=== PATIENT | male | born 1975 | race Caucasian/White ===

== ENCOUNTER 2020-08-30 11:30 | Outpatient (REF) | payer MEDICAID, SELFPAY | END 2020-08-30 11:31 | disposition home or self-care (01) | LOC: HO.LAB 11:30 | PROVIDERS: PCP Internal Medicine; Visit Provider Internal Medicine | DX: Z20.822 Contact with and (suspected) exposure to COVID-19 (principal) | CPT/HCPCS: 36415; C9803; U0003; U0005 ==

== ENCOUNTER 2020-10-12 14:10 | Outpatient (REF) | payer MEDICAID, SELFPAY ==
[2020-10-12 18:24] LABS: Estimated Average Glucose 160 mg/dL; Hemoglobin A1c % 7.2 %
== END 2020-10-12 14:11 | disposition home or self-care (01) ==
LOC: HO.MANLDS 14:10
PROVIDERS: PCP Internal Medicine; Visit Provider Internal Medicine
DX: E10.3219 Type 1 diabetes mellitus with mild nonproliferative diabetic retinopathy with macular edema, unspecified eye (principal); I10 Essential (primary) hypertension
CPT/HCPCS: 36415; 83036

== ENCOUNTER 2021-01-19 15:32 | Outpatient (REF) | payer MEDICAID, SELFPAY ==
[2021-01-19 17:00] LABS: Estimated Average Glucose 163 mg/dL; Hemoglobin A1c % 7.3 %
== END 2021-01-19 15:33 | disposition home or self-care (01) ==
LOC: HO.MANLDS 15:32
PROVIDERS: PCP Internal Medicine; Visit Provider Internal Medicine
DX: E10.3219 Type 1 diabetes mellitus with mild nonproliferative diabetic retinopathy with macular edema, unspecified eye (principal)
CPT/HCPCS: 36415; 83036

== ENCOUNTER 2021-06-07 10:09 | Outpatient (REF) | payer MEDICAID, SELFPAY ==
[2021-06-07 14:07] LABS: Estimated Average Glucose 166 mg/dL; Hemoglobin A1c % 7.4 %
== END 2021-06-07 10:10 | disposition home or self-care (01) ==
LOC: HO.MANLDS 10:09
PROVIDERS: PCP Internal Medicine; Visit Provider Internal Medicine
DX: E10.3219 Type 1 diabetes mellitus with mild nonproliferative diabetic retinopathy with macular edema, unspecified eye (principal); I10 Essential (primary) hypertension
CPT/HCPCS: 36415; 83036

== ENCOUNTER 2021-10-25 09:15 | Outpatient (REF) | payer MEDICAID, SELFPAY ==
[2021-10-25 11:25] LABS: Alanine Aminotransferase 13 U/L (0-40); Alkaline Phosphatase 67 U/L (39-117); Anion Gap 12 (12-20); Aspartate Amino Transferase 28 U/L (5-37); Bilirubin Total 1.1 mg/dL (0.0-1.0); Blood Urea Nitrogen 30 mg/dL (9-16); Calcium 8.5 mg/dL (8.4-10.2); Carbon Dioxide 26 mmol/L (22-29); Chloride 104 mmol/L (96-108); Estimated Glomerular Filt Rate 16; Glucose Random 383 mg/dL (60-115); Potassium 4.6 mmol/L (3.3-5.1); Sodium 137 mmol/L (135-145)
== END 2021-10-25 09:16 | disposition home or self-care (01) ==
LOC: HO.MANLDS 09:15
PROVIDERS: PCP Physician Assistant; Visit Provider Physician Assistant
DX: N17.8 Other acute kidney failure (principal)
CPT/HCPCS: 36415; 80053

== ENCOUNTER 2022-02-17 07:44 | Outpatient (REF) | payer MEDICAID, SELFPAY ==
[2022-02-17 11:38] LABS: Estimated Average Glucose 212 mg/dL
[2022-02-17 11:40] LABS: Alanine Aminotransferase 7 U/L (0-40); Albumin Level 3.4 g/dL (3.5-5.0); Alkaline Phosphatase 79 U/L (39-117); Anion Gap 13 (12-20); Aspartate Amino Transferase 14 U/L (5-37); Bilirubin Total 0.7 mg/dL (0.0-1.0); Blood Urea Nitrogen 40 mg/dL (9-16); Calcium 8.6 mg/dL (8.4-10.2); Carbon Dioxide 31 mmol/L (22-29); Chloride 102 mmol/L (96-108); Cholesterol 117 mg/dL; Estimated Glomerular Filt Rate 14; Glucose Random 141 mg/dL (60-115); HDL Cholesterol 49 mg/dL; LDL Cholesterol Calculated 64 mg/dl; Potassium 4.1 mmol/L (3.3-5.1); Sodium 142 mmol/L (135-145); Total Protein 6.3 g/dL (6.5-8.0); Triglycerides 24 mg/dL
[2022-02-17 11:53] LABS: Creatinine Urine 63.44 mg/dL
[2022-02-17 11:57] LABS: Thyroid Stimulating Hormone 3.47 uIU/mL (0.32-4.0)
[2022-02-17 12:05] LABS: Vitamin B12 283 pg/mL (200-900)
== END 2022-02-17 07:45 | disposition home or self-care (01) ==
LOC: HO.MANLDS 07:44
PROVIDERS: Visit Provider Internal Medicine
DX: E10.3219 Type 1 diabetes mellitus with mild nonproliferative diabetic retinopathy with macular edema, unspecified eye (principal)
CPT/HCPCS: 36415; 80053; 80061; 82043; 82306; 82607; 83036; 84443

== ENCOUNTER 2022-06-22 10:16 | Emergency (ER) | payer MEDICAID, SELFPAY ==
[2022-06-22 10:30] VITALS: BP 147/67; BP 192/81; PULSE 64; PULSE 67; RESP 18; TEMP 36.7; O2SAT 100; O2SAT 98; BMI 28.0
[2022-06-22 10:45] LABS: Glucose, Whole Blood > 600 mg/dL (60-115)
[2022-06-22 10:45] LABS: Glucose, Whole Blood 148 mg/dL (60-115)
--- NOTE | 2022-06-22 10:55 | PC.NURSE ---
patient a/ox4 .patient responsive slow . nargis . heart rate regular at 67 beats per minute . breathing even and unlabored . lungs clear throughout . skin cool and clammy . POC 148 . IV placed in left A.C . abdomen soft . positive bowel sounds in all four quadrants . patient on monitoring analyst . As assement continues patients alertness improves . patient contributes life stressors as contributing to uncontrolled type [address] Judah Giordano at bedside . patient aware of plan of care .
--- NOTE | 2022-06-22 11:02 | ECG_ITS ---
Test Reason : hypoglycemia Blood Pressure : / mmHG Vent. Rate : 064 BPM Atrial Rate : 064 BPM P-R Int : 142 ms QRS Dur : 098 ms QT Int : 460 ms P-R-T Axes : 069 012 044 degrees QTc Int : 474 ms Normal sinus rhythm Possible Left atrial enlargement Borderline ECG No previous ECGs available Referred By: Yanni Giordano Electronically Signed By:JAKE MCKEON
--- NOTE | 2022-06-22 11:03 | ED_ITS ---
HPI - General Adult General Chief complaint: General Medical Stated complaint: LOW BS OF 46, MID60'S AFTER ORAL GLUC Time Seen by Provider: 06/22/22 10:21 Source: patient Mode of arrival: EMS History of Present Illness HPI narrative: 46-year-old male who is a known diabetic is brought in by EMS after he states he is undergoing additional stress in his life and states that he was in the parking lot and is part car and found by a bystander to be diaphoretic and confused and noted be hypoglycemic to 40. Patient states that he took his i nsulin and had eaten his hash brown but had not touched his coffee or donut. Patient is currently managed by his primary care provider and is a type 1 diabetic and cannot recall the last time his blood sugar was this slow but states that frequently occurs when he is under a lot of stress. Patient also endorses that if you see that my renal function has worsened my primary care provider is aware of this and I am undergoing a referral to Nephrology for possible initiation of dialysis . EMS stated that they gave oral glucose and blood sugar improved. Related Data Allergies Allergy/AdvReac Type Severity Reaction Status Date / Time Sulfa (Sulfonamide Allergy Hives Verified 06/22/22 10:52 Antibiotics) Review of Systems Review of Systems: Pertinent positives and negatives as stated in HPI 10 point review of systems is otherwise negative. PMFSH Past Medical History Source: nursing notes reviewed Social History Social History Alcohol intake: former Smoked in Last 30 Days: No Advance Directives: No Advance Directives Information Provided: Yes Physical Exam ED Vital Signs: Vital Signs - 24 hr 06/22/22 10:30 06/22/22 16:08 Temperature 98.0 F Pulse Rate 64 78 Respiratory Rate 18 18 Blood Pressure 147/67 H 147/73 H Pulse Oximetry 100 99 Oxygen Delivery Method Room Air Room Air BMI result Body Mass Index 28.0 VITAL SIGNS: Reviewed. GENERAL: Well developed, well nourished, in no acute distress. HEAD: Normocephalic/atraumatic EYES: PERRLA, EOMI EARS: Ext canals without abnormality OROPHARYNX: no oral lesions noted, posterior pharynx clear LUNGS: Normal breath sounds. No adventitious sounds or accessory muscle use. SpO2<100> CARDIOVASCULAR: Regular rate and rhythm without noted murmurs, no JVD or lower extremity edema. ABDOMEN: Soft, non-tender, non-distended with bowel sounds. MUSCULOSKELETAL: No tenderness, deformities, or effusions noted on gross inspection. EXTREMITIES: No cyanosis, clubbing or edema. SKIN: Inspection of the skin reveals no rashes NEUROLOGIC: Alert and oriented x 4. Strength and sensation to light touch were grossly intact x 4. Course Course Course Narrative: 46-year-old male with history and clinical presentation of transient hypoglycemia secondary to inadequate oral intake after administration of insulin. Patient is responded well to oral glucose and will continue to monitor to ensure that his glucose states within normal range. Basic labs to include EKG will be obtained. On review of lab work he is noted to have significantly worsening creatinine function, but patient does state that this is already known to his primary care provider and is not associated with an elevated potassium or other electrolyte abnormalities. Patient does appear to be a reliable and responsible historian. However, will provide patient with 2 L of IV fluids an attempt to communicate with patient's primary care provider before final discharge disposition. 1639: Patient re-evaluated and he is feeling better, repeat BMP demonstrates that although he still has a CKD it appears to be consistent with prior and consistent with patient's report that it has worsened. He is otherwise hemodynamically stable with stable glucose and can be discharged home in stable condition. I did make an attempt to reach out to his primary care provider Dr. Pruitt who never returned my call. Medications Administered Discontinued Medications Generic Name Dose Route Start Last Admin Trade Name Freq PRN Reason Stop Dose Admin Sodium Chloride 2,000 mls @ 999 mls/hr 06/22/22 13:15 06/22/22 15:39 Ns IV 06/22/22 15:15 Infused .Q2H1M ALIRIO Infusion Medical Decision Making Lab Data Result Diagrams: 06/22/22 11:27 06/22/22 15:44 Labs: Lab Results 06/22/22 06/22/22 06/22/22 Range/Units 10:33 10:36 11:27 WBC 5.4 (4.8-10.8) X10*3/uL RBC 3.72 L (4.60-5.80) X10*6/uL Hgb 11.4 L (14.0-18.0) g/dl Hct 33.4 L (42.0-52.0) % MCV 89.8 (80.0-98.0) fL MCH 30.6 (27.0-33.0) pg MCHC 34.1 (31.0-36.0) g/dl RDW 11.8 (11.0-16.0) % Plt Count 179 (160-400) X10*3/uL MPV 10.0 (9.4-12.4) fL Immature Gran % (Auto) 0.4 (0.0-0.4) % Neut % (Auto) 66.1 (45-73) % Lymph % (Auto) 17.9 L (20-40) % Frontier % (Auto) 10.5 (2-11) % Eos % (Auto) 4.2 H (0-4) % Baso % (Auto) 0.9 (0-2) % Lymph # (Auto) 1.0 L (1.2-4.9) X10*3/uL Frontier # (Auto) 0.6 (0.1-1.2) X10*3/uL Eos # (Auto) 0.2 (0.0-0.4) X10*3/uL Baso # (Auto) 0.1 (0.0-0.2) X10*3/uL Abs Immat Gran (auto) 0.02 (0.00-0.03) X10*3/uL Absolute Neuts (auto) 3.6 (2.0-8.3) x10*3/uL Absolute Nucleated RBC 0.000 (0.0-0.012) X10*3/uL Nucleated RBC % (auto) 0.0 (0.0-0.2) /100WBC Sodium (135-145) mmol/L Potassium (3.3-5.1) mmol/L Chloride (96-108) mmol/L Carbon Dioxide (22-29) mmol/L Anion Gap (12-20) BUN (9-16) mg/dL Creatinine (0.5-1.4) mg/dL Estim Creat Clear Calc Estimated GFR POC Glucose > 600 H* 148 H (60-115) mg/dL Random Glucose (60-115) mg/dL Calcium (8.4-10.2) mg/dL Total Bilirubin (0.0-1.0) mg/dL AST (5-37) U/L ALT (0-40) U/L Alkaline Phosphatase (39-117) U/L Total Protein (6.5-8.0) g/dL Albumin (3.5-5.0) g/dL Influenza Type A (PCR) (Negative) Influenza Type B (PCR) (Negative) RSV RNA Qual (PCR) (Negative) SARS-CoV-2 RNA (RT-PCR) (Negative) 06/22/22 06/22/22 06/22/22 Range/Units 11:27 11:27 15:44 WBC (4.8-10.8) X10*3/uL RBC (4.60-5.80) X10*6/uL Hgb (14.0-18.0) g/dl Hct (42.0-52.0) % MCV (80.0-98.0) fL MCH (27.0-33.0) pg MCHC (31.0-36.0) g/dl RDW (11.0-16.0) % Plt Count (160-400) X10*3/uL MPV (9.4-12.4) fL Immature Gran % (Auto) (0.0-0.4) % Neut % (Auto) (45-73) % Lymph % (Auto) (20-40) % Frontier % (Auto) (2-11) % Eos % (Auto) (0-4) % Baso % (Auto) (0-2) % Lymph # (Auto) (1.2-4.9) X10*3/uL Frontier # (Auto) (0.1-1.2) X10*3/uL Eos # (Auto) (0.0-0.4) X10*3/uL Baso # (Auto) (0.0-0.2) X10*3/uL Abs Immat Gran (auto) (0.00-0.03) X10*3/uL Absolute Neuts (auto) (2.0-8.3) x10*3/uL Absolute Nucleated RBC (0.0-0.012) X10*3/uL Nucleated RBC % (auto) (0.0-0.2) /100WBC Sodium 140 141 (135-145) mmol/L Potassium 4.0 3.9 (3.3-5.1) mmol/L Chloride 102 108 (96-108) mmol/L Carbon Dioxide 29 25 (22-29) mmol/L Anion Gap 13 12 (12-20) BUN 46 H 42 H (9-16) mg/dL Creatinine 7.33 H* 6.88 H* (0.5-1.4) mg/dL Estim Creat Clear Calc 14.2 15.1 Estimated GFR 8 9 POC Glucose (60-115) mg/dL Random Glucose 66 D 102 D (60-115) mg/dL Calcium 8.5 7.8 L D (8.4-10.2) mg/dL Total Bilirubin 0.9 (0.0-1.0) mg/dL AST 17 (5-37) U/L ALT 11 (0-40) U/L Alkaline Phosphatase 90 (39-117) U/L Total Protein 6.0 L (6.5-8.0) g/dL Albumin 3.4 L (3.5-5.0) g/dL Influenza Type A (PCR) NEGATIVE (Negative) Influenza Type B (PCR) NEGATIVE (Negative) RSV RNA Qual (PCR) NEGATIVE (Negative) SARS-CoV-2 RNA (RT-PCR) NEGATIVE (Negative) 06/22/22 Range/Units 16:20 WBC (4.8-10.8) X10*3/uL RBC (4.60-5.80) X10*6/uL Hgb (14.0-18.0) g/dl Hct (42.0-52.0) % MCV (80.0-98.0) fL MCH (27.0-33.0) pg MCHC (31.0-36.0) g/dl RDW (11.0-16.0) % Plt Count (160-400) X10*3/uL MPV (9.4-12.4) fL Immature Gran % (Auto) (0.0-0.4) % Neut % (Auto) (45-73) % Lymph % (Auto) (20-40) % Frontier % (Auto) (2-11) % Eos % (Auto) (0-4) % Baso % (Auto) (0-2) % Lymph # (Auto) (1.2-4.9) X10*3/uL Frontier # (Auto) (0.1-1.2) X10*3/uL Eos # (Auto) (0.0-0.4) X10*3/uL Baso # (Auto) (0.0-0.2) X10*3/uL Abs Immat Gran (auto) (0.00-0.03) X10*3/uL Absolute Neuts (auto) (2.0-8.3) x10*3/uL Absolute Nucleated RBC (0.0-0.012) X10*3/uL Nucleated RBC % (auto) (0.0-0.2) /100WBC Sodium (135-145) mmol/L Potassium (3.3-5.1) mmol/L Chloride (96-108) mmol/L Carbon Dioxide (22-29) mmol/L Anion Gap (12-20) BUN (9-16) mg/dL Creatinine (0.5-1.4) mg/dL Estim Creat Clear Calc Estimated GFR POC Glucose 83 (60-115) mg/dL Random Glucose (60-115) mg/dL Calcium (8.4-10.2) mg/dL Total Bilirubin (0.0-1.0) mg/dL AST (5-37) U/L ALT (0-40) U/L Alkaline Phosphatase (39-117) U/L Total Protein (6.5-8.0) g/dL Albumin (3.5-5.0) g/dL Influenza Type A (PCR) (Negative) Influenza Type B (PCR) (Negative) RSV RNA Qual (PCR) (Negative) SARS-CoV-2 RNA (RT-PCR) (Negative) Independent Interpretation I performed an independent interpretation of an: EKG Interpretation: Normal sinus rhythm, HR-64, no STEMI, AL/QRS/QTC are within normal limits. There is no EKG for comparison. Critical Care Time Critical Care Time Critical Care Time: Yes Total Critical Care Time: 45 Attestation: I personally attest to this time spent taking care of the patient. Discharge Plan Discharge Clinical Impression: Hypoglycemia, CKD (chronic kidney disease) Patient Disposition: Home, Self-Care Instructions: Chronic Kidney Disease (ED), Hypoglycemia in a Person with Diabetes (ED) Additional Instructions: 1. Resume all home medications as prescribed. 2. Continue stay well hydrated with water. 3. Please follow-up with your primary care provider by calling the office in the morning and setting up an and evaluation for further outpatient management. Return to the ER for worsening symptoms. Referrals: Aidan Pruitt MD [Primary Care Provider] -
[2022-06-22 11:34] LABS: MANUAL DIFF FLAG NO
[2022-06-22 11:44] LABS: Basophils Absolute Auto 0.1 X10*3/uL (0.0-0.2); Basophils Percent Auto 0.9 % (0-2); Eosinophils Absolute Auto 0.2 X10*3/uL (0.0-0.4); Eosinophils Percent Auto 4.2 % (0-4); Hematocrit 33.4 % (42.0-52.0); Hemoglobin 11.4 g/dl (14.0-18.0); Imm Gran Abs Auto 0.02 X10*3/uL (0.00-0.03); Imm Gran Pct Auto 0.4 % (0.0-0.4); Lymphocytes Percent Auto 17.9 % (20-40); Mean Corpuscular HGB Conc 34.1 g/dl (31.0-36.0); Mean Corpuscular Hemoglobin 30.6 pg (27.0-33.0); Mean Corpuscular Volume 89.8 fL (80.0-98.0); Monocytes Absolute Auto 0.6 X10*3/uL (0.1-1.2); Monocytes Percent Auto 10.5 % (2-11); Neutrophils Absolute Auto 3.6 x10*3/uL (2.0-8.3); Neutrophils Percent Auto 66.1 % (45-73); Platelet Count 179 X10*3/uL (160-400); Red Blood Count 3.72 X10*6/uL (4.60-5.80); Red Cell Distribution Width 11.8 % (11.0-16.0); White Blood Count 5.4 X10*3/uL (4.8-10.8)
[2022-06-22 12:12] LABS: Alanine Aminotransferase 11 U/L (0-40); Albumin Level 3.4 g/dL (3.5-5.0); Alkaline Phosphatase 90 U/L (39-117); Anion Gap 13 (12-20); Aspartate Amino Transferase 17 U/L (5-37); Blood Urea Nitrogen 46 mg/dL (9-16); Calcium 8.5 mg/dL (8.4-10.2); Carbon Dioxide 29 mmol/L (22-29); Chloride 102 mmol/L (96-108); Creatinine Clr Calc Pharmacy 14.2; Estimated Glomerular Filt Rate 8; Glucose Random 66 mg/dL (60-115); Sodium 140 mmol/L (135-145)
[2022-06-22 12:28] LABS: Influenza A PCR NEGATIVE (Negative); Influenza B PCR NEGATIVE (Negative); Resp Syncy Virus RNA Qual PCR NEGATIVE (Negative); SARS COV2 PCR INHOUSE NEGATIVE (Negative)
[2022-06-22 12:43] LABS: Bilirubin Total 0.9 mg/dL (0.0-1.0)
[2022-06-22] MEDS: 0.9 % Sodium Chloride 2,000 ML 999 ML IV (13:12)
[2022-06-22 16:08] VITALS: BP 147/73; PULSE 78; RESP 18; O2SAT 99
[2022-06-22 16:23] LABS: Glucose, Whole Blood 83 mg/dL (60-115)
[2022-06-22 16:23] LABS: Anion Gap 12 (12-20); Blood Urea Nitrogen 42 mg/dL (9-16); Calcium 7.8 mg/dL (8.4-10.2); Carbon Dioxide 25 mmol/L (22-29); Chloride 108 mmol/L (96-108); Creatinine Clr Calc Pharmacy 15.1; Estimated Glomerular Filt Rate 9; Glucose Random 102 mg/dL (60-115); Potassium 3.9 mmol/L (3.3-5.1); Sodium 141 mmol/L (135-145)
--- NOTE | 2022-06-22 17:15 | PC.NURSE ---
a/ox4 . VSS . Went over discharge instructions as ordered by provider . patient to return ED if symptoms worsen . no questions at this time .
== END 2022-06-22 17:23 | disposition home or self-care (01) ==
PROVIDERS: Emergency Provider Student in an Organized Health Care Education/Training Program; PCP Internal Medicine
DX: E11.649 Type 2 diabetes mellitus with hypoglycemia without coma (principal); Z20.822 Contact with and (suspected) exposure to COVID-19; Z79.899 Other long term (current) drug therapy
CPT/HCPCS: 0241U; 36415; 80048; 80053; 82947; 85025; 93005; 96360; 96361; 99284

== ENCOUNTER 2022-06-23 07:55 | Outpatient (REF) | payer MEDICAID, SELFPAY ==
[2022-06-23 12:07] LABS: Estimated Average Glucose 180 mg/dL; Hemoglobin A1c % 7.9 %
== END 2022-06-23 07:56 | disposition home or self-care (01) ==
LOC: HO.MANLDS 07:55
PROVIDERS: Visit Provider Internal Medicine
DX: E10.3219 Type 1 diabetes mellitus with mild nonproliferative diabetic retinopathy with macular edema, unspecified eye (principal)
CPT/HCPCS: 36415; 83036

== ENCOUNTER 2025-05-26 15:25 | Outpatient (REF) | payer BC, SELFPAY ==
[2025-05-26 19:11] LABS: Alanine Aminotransferase 7 U/L (0-40); Albumin Level 3.2 g/dL (3.5-5.0); Alkaline Phosphatase 78 U/L (39-117); Anion Gap 12 (12-20); Aspartate Amino Transferase 23 U/L (5-37); Blood Urea Nitrogen 27 mg/dL (9-16); Calcium 11.3 mg/dL (8.4-10.2); Carbon Dioxide 28 mmol/L (22-29); Chloride 103 mmol/L (96-108); Estimated Glomerular Filt Rate 14; Potassium 4.8 mmol/L (3.3-5.1); Sodium 138 mmol/L (135-145); Total Protein 7.0 g/dL (6.5-8.0)
--- OUTSIDE RECORDS SUMMARY | 2025-05-27 13:12 | XMS_ITS | Data Portability ---
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) MDM MODERATE MUST MEET 2 OUT OF 3 ELEMENTS: PROBLEMS, DATA OR RISK ELEMENT 1: PROBLEMS ADDRESSED 1 OR MORE CHRONIC ILLNESS WITH EXACERBATION OR 2 OR MORE STABLE CHRONIC ILLNESSES OR 1 UNDIAGNOSED NEW PROBLEM OR 1 ACUTE ILLNESS W/SYMPTOMS OR 1 ACUTE COMPLICATED INJURY ELEMENT 2: DATA MUST MEET 1 OF 3 CATEGORIES CATEGORY 1: REVIEW OF PRIOR EXTERNAL NOTES, REVIEW OF RESULTS, ORDERING OF EACH TEST, ASSESSMENT REQUIRING INDEPENDENT HISTORIAN OR CATEGORY 2: INDEPENDENT INTERPRETATION OF TESTS BY ANOTHER PHYSICIAN OR SPECIALIST OR CATEGORY 3: DISCUSSION OF MGT OR TEST INTERPRETATION W/EXTERNAL PHYSICIAN OR SPECIALIST ELEMENT 3: RISK RISK OF COMPLICATIONS AND/OR MORBIDITY OR MORTALITY OF PATIENT MANAGEMENT PROVIDER MUST THOROUGHLY DOCUMENT EACH ELEMENT THAT IS COVERED Not available 06/22/2023 16:27:52 12/19/2024 12/19/2024 [id number] [place] [id number] (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) MDM MODERATE MUST MEET 2 OUT OF 3 ELEMENTS: PROBLEMS, DATA OR RISK ELEMENT 1: PROBLEMS ADDRESSED 1 OR MORE CHRONIC ILLNESS WITH EXACERBATION OR 2 OR MORE STABLE CHRONIC ILLNESSES OR 1 UNDIAGNOSED NEW PROBLEM OR 1 ACUTE ILLNESS W/SYMPTOMS OR 1 ACUTE COMPLICATED INJURY ELEMENT 2: DATA MUST MEET 1 OF 3 CATEGORIES CATEGORY 1: REVIEW OF PRIOR EXTERNAL NOTES, REVIEW OF RESULTS, ORDERING OF EACH TEST, ASSESSMENT REQUIRING INDEPENDENT HISTORIAN OR CATEGORY 2: INDEPENDENT INTERPRETATION OF TESTS BY ANOTHER PHYSICIAN OR SPECIALIST OR CATEGORY 3: DISCUSSION OF MGT OR TEST INTERPRETATION W/EXTERNAL PHYSICIAN OR SPECIALIST ELEMENT 3: RISK RISK OF COMPLICATIONS AND/OR MORBIDITY OR MORTALITY OF PATIENT MANAGEMENT PROVIDER MUST THOROUGHLY DOCUMENT EACH ELEMENT THAT IS COVERED Not available 12/19/2024 09:53:36 12/30/2024 12/30/2024 [id number] [place] [id number] (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 REVIEW OF PRIOR EXTERNAL NOTES/RESULTS, ORDERING OF TEST(S) CATEGORY 2. ASSESSMENT REQUIRING INDEPENDENT HISTORIAN(S) INCLUDE WHO THE HISTORIAN IS AND RELATION TO PT AND WHY PT IS UNABLE TO GIVE COMPLETE HISTORY ELEMENT 3: RISK (LOW) RISK OF COMPLICATIONS AND/OR MORBIDITY OR MORTALITY OF PATIENT MANAGEMENT PROVIDER MUST THOROUGHLY DOCUMENT ALL OF THE ELEMENTS COVERED Not available 12/30/2024 16:25:45 Plan of Treatment Reminders Order Date Submit Date Provider Last Modified By Organization Details Last Modified Time Details Appointments FOLLOW UP 15 2024 03:00P M DR CEDILLO Not available Not available Not available ANNUAL EXAM 2025 09:00A M DR CEDILLO Not available Not available Not available Lab HbA1c (hemoglob in A1c), blood 2022 023 [facility] [address] [place], [address], 06/22/2023 16:30:58 Referral dermatolo gist referral - pt is a recent renal transplan t --25 2024 025 [facility], [address] [place] [address], [id number], 10/21/2024 09:30:22 Procedures None recorded. Surgeries None recorded. Imaging None recorded. Medication Orders hydromorp radha 4 mg tablet 2024 025 [id number], [address] [place] [address], [phone], 04/17/2025 05:01:08 Spiriva with HandiHale r 18 mcg and inhalatio n capsules 2022 023 [id number], [address] [place], [place], [phone], 06/22/2023 16:30:59 Patient TargetsNo targets recorded. Patient Instructions Encounter Date Encounter Id Patient Instructions Last Modified By Organization Details Last Modified Time 06/22/2023 [id number] pulse oximetry* Not available 06/22/2023 16:29:07 learning about type 1 diabetes Not available 06/22/2023 16:29:04 type 1 diabetes: care instructions Not available 06/22/2023 16:29:04 09/23/2024 [id number] pulse oximetry* Not available 09/23/2024 16:09:38 high blood pressure: care instructions Not available 09/23/2024 16:09:38 learning about high blood pressure Not available 09/23/2024 16:09:38 12/30/2024 [id number] pulse oximetry* Not available 12/30/2024 16:26:41 bronchitis: care instructions Not available 12/30/2024 16:26:41 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 typical pigmented lesion pt is a recent renal transplant 07-10-24 Referring Physician: Aidan Cedillo, Internal Medicine, Encounter Date: 09/23/2024 Results Created Date Observation Date Name Description Value Unit Range Abnormal Flag Note LastModifiedBy Organization Detail LastModifiedTime 06/22/2006/22/2023 pulse oxime try* Result 98 Not Available [facility] [address], [place], [address], 06/20/2023 09:55:23 09/24/1909/23/2024 pulse oxime try* Result 99 Not Available [facility] [address], [place], [address], 09/23/2024 09:55:49 12/31/1931 1212/30/2024 pulse oxime try* Result 97% Not Available [facility] [address], [place], [address], 12/22/2024 16:29:38 11/01/19 24 11/01/2023 XR, chest , 2 view No observ ation record ed. [email or web address] [facility] [address], [place], [address], 11/02/2023 11:27:19 Result Notes None recorded. 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 779118138 Active 2017 L leg Not Available [facility] 3 22:20:50 Retinopa thy due to diabetes mellitus 9427545 Active 2017 Not Available [facility] 3 22:20:50 Microalb uminuria due to type 1 diabetes mellitus 63612745485 106 Active 2017 Not Available [facility] 3 22:20:50 Neuropat hy due to diabetes mellitus 260188757 Active 2017 Not Available [facility] 3 22:20:50 Hyperten sive disorder 68850767 Active 2018 Not Available [facility] 3 22:20:50 Chronic kidney disease stage 3 675346159 Active 2019 Not Available [facility] 3 22:20:50 Edema of lower extremit y 823499732 Active 2021 Not Available [facility] 3 22:20:50 Sepsis 92292734 Active 2021 Not Available [facility] 3 22:20:50 Pneumoni a 005094745 Active 2021 Not Available [facility] 3 22:20:50 Acute injury of kidney 40528672960 144976 Active 2021 Not Available [facility] 3 22:20:50 [facility] jeannie 27273321 Active 2021 Not Available [facility] 3 22:20:50 End stage renal failure on dialysis 514904530 Completed 202209/23/2024 Aidan Cedillo, DO [address] [place] [address], [phone], [facility] 5 16:04:36 Acute bronchit is 03387829 Active 2023 DION ORTIZ [address] [place] [address], [phone], [facility] 4 11:11:15 Pleural effusion 02307587 Active 2023 DION ORTIZ [address] [place], [address], [facility] 4 11:28:40 Atypical pigmente d lesion 17649994765 103 Active 2024 Aidan Cedillo, DO [address] [place] [address], [address], [facility] 5 16:09:59 Streptoc occal sore throat 81970045 Active 2024 Aidan Cedillo DO [address] [place] [address], [address], [facility] 5 12:10:45 Acute pharyngi tis 141757450 Active 2024 Aidan Cedillo DO [address] [place] [address], [phone], [facility] 5 15:38:14 Drug-ind uced oral ulcerati on 513051939 Active 2024 Aidan Cedillo, DO [address] [place], [address], [facility] 5 09:53:18 Closed fracture of hand 968515956 Active 2024 DION ORTIZ [address] [place], [address], [facility] 5 15:06:35 Notes:Some problems listed i n Documents: #[id number], #[id number], #[id number], #[id number], #[id number], #[id number], #[id number] could not be added to this patient's chart. Please review these documents and add these problems to the patient's chart manually as needed. Problem Notes None recorded. Medical Equipment None Reported. Allergies Allergen ID Allergen Name Allergen Category Reaction Reaction Severity Criticality Documentation Date Start Date Code Code System Note Provider Name and Address Organization Details Recorded Time 292 Substance with sulfonami de structure and antibacte rial mechanism of action (substanc e) medicatio n Not available Not available Not available 09/11/2017 27254 8003 SNOMED Kayli Barkley [facility] 8 09:12:11 3477 Product containin g angiotens in-conver ting enzyme inhibitor (product) medicatio n cough Not available Not available 03/14/2019 22269 009 SNOMED Aidan Cedillo DO [address] [place], [address], [facility] 9 09:50:49 4186 Non-stero idal anti-infl ammatory agent (substanc e) medicatio n other severe Not available 05/26/2020 33256 5008 SNOMED cause kidne y damag e Aidan Cedillo DO [address] [place], [address], [facility] 0 14:03:33 Medications Name Sig Start Date Stop Date Status Note LastModified by Organization Details LastModified Time sure comfort insulin syringe/u-1 00/ 0.5ml/30g x 1/2 30g x 1/2 0.5 ml misc 03/18 completed Not Available Not Available Not Available Magic Mouthwash- take 1 ml by mouth three times a day as needed 10 ml q 3-4 hrs prn 03/18 completed Not Available Not Available Not Available freestyle lancets [facility] active Not Available Not Available Not Available Prescriptio n - Prior Authorizati on Request active Not Available Not Available N ot Available freestyle freedom lite test strips test up to 9 times a day 09/23 completed Not Available Not Available Not Available cyclobenzap rine 10 mg tablet TK 1 T PO BID FOR 15 DAYS 10/13 completed Not Available Not Available Not Available furosemide 40 mg tablet TAKE 1 TABLET BY MOUTH EVERY DAY 04/04 completed Not Available Not Available Not Available atorvastati n 40 mg tablet TAKE 1 TABLET BY MOUTH DAILY active Not Available Not Available No t Available clotrimazol e 10 mg ginette 03/18 completed Not Available Not Available Not Available silver sulfadiazin e 1 % topical cream APPLY A 1/16 INCH (1.5 MM) THICK LAYER TO ENTIRE BURN AREA BY TOPICALRO TIM 2 TIMES PER DAY 03/18 completed Not Available Not Available Not Available valganciclo vir 450 mg tablet active Not Available Not Available Not Available acetaminoph en 325 mg tablet 09/23 completed Not Available Not Available Not Available carvedilol 6.25 mg tablet 03/18 completed Not Available Not Available Not Available doxycycline hyclate 100 mg capsule TAKE 1 CAPSULE BY MOUTH TWICE DAILY 10/17 completed Not Available Not Available Not Available carvedilol 12.5 mg tablet TAKE 2 TABLETS BY MOUTH TWICE DAILY active Not Available Not Available No t Available torsemide 20 mg tablet TAKE 3 TABLETS BY MOUTH DAILY active Not Available Not Available No t Available atorvastati n 10 mg tablet Take 1 tablet(s) every day by oral route for 90 days. 09/23 completed Not Available Not Available Not Available azithromyci n 250 mg tablet TAKE 2 TABLETS (500 MG) BY ORAL ROUTE ONCE DAILY FOR 1 DAY THEN 1 TABLET (250 MG) BY ORAL ROUTE ONCE DAILY FOR 4 DAYS 12/30 completed Not Available Not Available Not Available Glucagon Emergency Kit 1 mg solution for injection TAKE 1 MG BY INJECTION ROUTE NEEDED FOR 10 DAYS active Not Available Not Available No t Available benzonatate 200 mg capsule TAKE 1 CAPSULE BY MOUTH THREE TIMES DAILY FOR 7 DAYS NEEDED FOR COUGH 08/26 completed Not Available Not Available Not Available valacyclovi r 1 gram tablet TAKE 1 TABLET BY MOUTH EVERY 12 HOURS FOR 7 DAYS active Not Available Not Available No t Available hydrocodone 5 mg-acetamin ophen 325 mg tablet TAKE 1 TABLET BY MOUTH EVERY 6 HOURS FOR 7 DAYS 03/18 completed Not Available Not Available Not Available senna 8.6 mg tablet 09/23 completed Not Available Not Available Not Available fluconazole 200 mg tablet TAKE 1 TABLET BY MOUTH DAILY FOR 14 DAYS 03/18 completed Not Available Not Available Not Available FreeStyle Lancets 28 gauge USE TO TEST UP TO 10 TIMES DAILY 09/23 completed Not Available Not Available Not Available ondansetron HCl 4 mg tablet TAKE 1 TABLET BY MOUTH EVERY 6 HOURS 09/23 completed Not Available Not Available Not Available prednisone 5 mg tablet TAKE 1 TABLET BY MOUTH DAILY WITH FOOD OR MILK 03/18 completed Not Available Not Available Not Available metolazone 5 mg tablet TAKE 1 TABLET BY MOUTH DAILY active Not Available Not Available No t Available atenolol 25 mg tablet TAKE 1 TABLET BY MOUTH EVERY DAY 06/22 completed Not Available Not Available Not Available Lantus U-100 Insulin 100 unit/mL subcutaneou s solution ADMINISTE R 8 UNITS UNDER THE SKIN DAILY AT BEDTIME E 10.65 active Not Available Not Available No t Available amlodipine 2.5 mg tablet TAKE 1 TABLET BY MOUTH EVERY DAY EXCEPT ON DIALYSIS DAYS. 09/23 completed Not Available Not Available Not Available metronidazo le 500 mg tablet Take 1 tablet every day by oral route for 13 days. 10/25 completed Not Available Not Available Not Available chlorthalid one 25 mg tablet TAKE 1 TABLET BY MOUTH DAILY active Not Available Not Available No t Available amlodipine 5 mg tablet TAKE 1 TABLET BY MOUTH EVERY NIGHT 09/23 completed Not Available Not Available Not Available trimethopri m 100 mg tablet 03/18 completed Not Available Not Available Not Available aspirin 81 mg tablet,clay yed release TAKE 1 TABLET BY MOUTH DAILY active Not Available Not Available No t Available amoxicillin 500 mg tablet TAKE 1 TABLET BY MOUTH EVERY 8 HOURS 03/18 completed Not Available Not Available Not Available carvedilol 3.125 mg tablet TAKE 1 TABLET BY MOUTH TWICE DAILY 09/23 completed Not Available Not Available Not Available acetaminoph en ER 650 mg tablet,exte nded release TAKE 1 TABLET BY MOUTH EVERY 8 HOURS NEEDED FOR PAIN active Not Available Not Available No t Available losartan 100 mg-hydrochl orothiazide 25 mg tablet TAKE 1 TABLET BY MOUTH EVERY DAY 01/19 completed Not Available Not Available Not Available amoxicillin 875 mg tablet TAKE 1 TABLET BY MOUTH EVERY 12 HOURS FOR 10 DAYS 03/18 completed Not Available Not Available Not Available hydromorpho ne 2 mg tablet TAKE 1 TABLET BY MOUTH EVERY 6 HOURS NEEDED 05/12 completed Not Available Not Available Not Available magnesium oxide 400 mg (241.3 mg magnesium) tablet TAKE 1 TABLET BY MOUTH DAILY active Not Available Not Available No t Available torsemide 100 mg tablet TAKE 1 TABLET BY MOUTH TWICE DAILY active Not Available Not Available No t Available tamsulosin 0.4 mg capsule TAKE 1 CAPSULE BY MOUTH EVERY DAY active Not Available Not Available No t Available linezolid 600 mg tablet TAKE 1 TABLET BY MOUTH EVERY 12 HOURS FOR 5 DAYS active Not Available Not Available No t Available furosemide 80 mg tablet 09/23 completed Not Available Not Available Not Available Humalog U-100 Insulin 100 unit/mL subcutaneou s solution INJECT DIRECTED PER SLIDING SCALE THREE TIMES DAILY. MAX OF 20 UNITS PER MEAL, MAX OF 60 PER DAY active Not Available Not Available No t Available amlodipine 10 mg tablet Take 1 tablet every day by oral route for 30 days. 10/25 completed Not Available Not Available Not Available cephalexin 500 mg capsule Take 1 capsule every day by oral route for 13 days. 10/25 completed Not Available Not Available Not Available calcitriol 0.5 mcg capsule TAKE 4 CAPSULES BY MOUTH DAILY active Not Available Not Available No t Available tobramycin 0.3 % eye drops INSTILL 1 DROP IN BOTH EYES FIVE TIMES DAILY 01/19 completed Not Available Not Available Not Available lisinopril 10 mg tablet TAKE 1 TABLET BY MOUTH DAILY 09/23 completed Not Available Not Available Not Available fluticasone 500 mcg-salmete rol 50 mcg/dose blistr powdr for inhalation INHALE 1 PUFF BY MOUTH TWICE DAILY. RINSE MOUTH AFTER USE active Not Available Not Available No t Available oxycodone 5 mg capsule TAKE 1 CAPSULE BY MOUTH EVERY 6 HOURS FOR 3 DAYS NEEDED FOR PAIN 09/23 completed Not Available Not Available Not Available docusate sodium 100 mg capsule TAKE 1 CAPSULE BY MOUTH 2 TIMES A DAY NEEDED FOR CONSTIPAT ION 09/23 completed Not Available Not Available Not Available gabapentin 300 mg capsule TAKE 1 CAPSULE BY MOUTH DAILY AT BEDTIME NEEDED FOR SEVERE PAIN active Not Available Not Available No t Available diclofenac sodium 75 mg tablet,clay yed release TK 1 T PO BID 05/26 completed Not Available Not Available Not Available montelukast 10 mg tablet TAKE 1 TABLET BY MOUTH TWICE DAILY active Not Available Not Available No t Available furosemide 20 mg tablet TAKE ONE TAB ONCE A DAY UNTIL REPEAT XR 09/23 completed Not Available Not Available Not Available ergocalcife rol (vitamin D2) 1,250 mcg (50,000 unit) capsule TAKE 1 CAPSULE BY MOUTH EVERY WEEK active Not Available Not Available No t Available levofloxaci n 500 mg tablet TAKE 1 TABLET BY MOUTH EVERY 24 HOURS FOR 10 DAYS 10/20 completed Not Available Not Available Not Available levofloxaci n 750 mg tablet TAKE 1 TABLET BY MOUTH EVERY DAY FOR 10 DAYS 09/23 completed Not Available Not Available Not Available scopolamine 1 mg over [address] 1 PATCH BEHIND THE LEFT EAR EVERY 72 HOURS FOR 14 DAYS NEEDED FOR NAUSEA/VO MITING active Not Available Not Available No t Available methylpredn isolone 4 mg tablets in a dose pack FOLLOW PACKAGE DIRECTION S 09/23 completed Not Available Not Available Not Available hydromorpho ne 4 mg tablet Take 1 tablet every 4-6 hours by oral route as needed for 7 days. 04/17 completed Not Available Not Available Not Available ondansetron 4 mg disintegrat ing tablet DISSOLVE 1 TABLET BY MOUTH UNDER TONGUE EVERY 6 HOURS NEEDED FOR NAUSEA AND VOMITING 09/23 completed Not Available Not Available Not Available tacrolimus 1 mg capsule, immediate-r elease TAKE 1 CAPSULE BY MOUTH EVERY 12 HOURS active Not Available Not Available No t Available calcitriol 0.25 mcg capsule TAKE 1 CAPSULE BY MOUTH DAILY 09/23 completed Not Available Not Available Not Available loratadine 10 mg tablet TAKE 1 TABLET BY MOUTH EVERY DAY FOR ALLERGY 2024 active Not Available Not Available Not Avai lable atovaquone 750 mg/5 mL oral suspension SHAKE LIQUID AND TAKE 10 ML BY MOUTH DAILY FOR 14 DAYS 03/18 completed Not Available Not Available Not Available amoxicillin 500 mg-potassiu m clavulanate 125 mg tablet 10/17 completed Not Available Not Available Not Available tacrolimus 0.5 mg capsule, immediate-r elease 12/30 completed Not Available Not Available Not Available oxycodone 5 mg tablet TAKE 1 TABLET BY MOUTH EVERY 6 HOURS NEEDED FOR PAIN 03/18 completed Not Available Not Available Not Available valsartan 160 mg tablet Take 1 tablet every day by oral route. 03/14 completed Not Available Not Available Not Available insulin lispro (U-100) 100 unit/mL subcutaneou s pen INJECT 4 TO 9 UNITS SUBCUTANE OUSLY THREE TIMES A DAY BEFORE MEALS PER SLIDING SCALE active Not Available Not Available No t Available Novolog FlexPen U-100 Insulin aspart 100 unit/mL (3 mL) subcutaneou s 20 units sq with each meal 09/23 completed Not Available Not Available Not Available mycophenola te sodium 180 mg tablet,clay yed release 1 bid active Not Available Not Available Not Available tiotropium bromide 18 mcg capsule with inhalation device INHALE THE CONTENTS OF 1 CAPSULE VIA INHALATIO N DEVICE EVERY DAY active Not Available Not Available No t Available Sure Comfort Insulin Syringe 0.5 mL 30 gauge x 1/2 USE TO INJECT INSULIN FOUR TIMES A DAY active Not Available Not Available No t Available Sure Comfort Insulin Syringe 1 mL 31 gauge x 5/16 USE FOR ADMINISTR ATION OF INSULIN UP TO FIVE TIMES A DAY active Not Available Not Available No t Available Vitamin D3 1 po qd 09/23 completed 1000 Not Available Not Available Not Available ProAir HFA 90 mcg/actuati on aerosol inhaler INHALE 2 PUFFS BY MOUTH EVERY 4 HOURS active Not Available Not Available No t Available FreeStyle Lite Strips TEST UP TO 9 TIMES DAILY 09/23 completed Not Available Not Available Not Available Lantus Solostar U-100 Insulin 100 unit/mL (3 mL) subcutaneou s pen 05/21 completed Not Available Not Available Not Available sevelamer carbonate 800 mg tablet TAKE 1 TABLET BY MOUTH THREE TIMES DAILY WITH MEALS active Not Available Not Available No t Available cholecalcif patricia (vitamin D3) 50 mcg (2,000 unit) capsule TAKE 1 CAPSULE BY MOUTH ONCE weekly 09/23 completed Not Available Not Available Not Available Prolensa 0.07 % eye drops PLACE 1 DROP INTO SURGICAL EYE(S) ONCE DAILY EVERY MORNING START 2 DAYS PRIOR TO SURGERY 01/19 completed Not Available Not Available Not Available Dexcom G6 Transmitter device USE DIRECTED active Not Available Not Available No t Available FreeStyle Sobeida 14 Day Sensor kit USE DIRECTED 09/23 completed Not Available Not Available Not Available Wixela Inhub 250 mcg-50 mcg/dose powder for inhalation 1 inhalatio n bid 2023 active Not Available Not Available Not Avai lable Baqsimi 3 mg/actuatio n nasal spray USE 3 MG IN RIGHT NOSTRIL ONCE IF UNCONSCIO US/UNABLE TO INTAKE CARBOHYDR ATES/GLUC OSE AND EXPERIENC ING HYPOGLYCE BENJY. CALL 911 AFTER ADMINISTR ATION. active Not Available Not Available No t Available Afluria Qd 2019- (36 mos up)(PF)60 mcg (15 mcg x4)/0.5 mL IM syringe ADM 0.5ML IM UTD 05/26 completed Not Available Not Available Not Available Semglee (insulin glargine-yf gn) Pen 100 unit/mL (3 mL) subcutaneou s INJECT 17 UNITS SUBCUTANE OUSLY EVERY DAY AT BEDTIME. ROTATE INJECTION SITES active Not Available Not Available No t Available Dexcom G7 Sensor device USE TO MONITOR BLOOD GLUCOSE DIRECTED active Not Available Not Available No t Available Ultra-Fine Pen Needle 31 gauge x 5/16 USE TO ADMINISTE R INSULIN THREE TIMES DAILY active Not Available Not Available No t Available Vitals Date Recorded Body height Body mass index (BMI) Body weight Heart rate Oxygen saturation Oxygen saturation in Arterial blood by Pulse oximetry Systolic And Diastolic Provider Name and Address Organization Details Last Updated DateTime 5 182.25 cm 26 kg/m2 69540.7 1 g 74 /min 99 % 99 % 148/84 mm[Hg] Sonia Castano [facility] 5 16:00:35 Date Recorded Body height Body mass index (BMI) Body weight Heart rate Oxygen saturation Oxygen saturation in Arterial blood by Pulse oximetry Systolic And Diastolic Provider Name and Address Organization Details Last Updated DateTime 5 182.25 cm 25.9 kg/m2 66620.5 5 g 74 /min 97 % 97 % 110/70 mm[Hg] Rebeka Leos [facility] 5 16:09:05 Date Recorded Body height Body mass index (BMI) Body weight Heart rate Oxygen saturation Oxygen saturation in Arterial blood by Pulse oximetry Systolic And Diastolic Provider Name and Address Organization Details Last Updated DateTime 5 182.25 cm 25.9 kg/m2 85002.5 5 g 76 /min 98 % 98 % 118/74 mm[Hg] Rebeka Leos [facility] 5 11:50:31 Date Recorded Body height Body mass index (BMI) Body weight Heart rate Oxygen saturation Oxygen saturation in Arterial blood by Pulse oximetry Systolic And Diastolic Provider Name and Address Organization Details Last Updated DateTime 3 182.25 cm 25.4 kg/m2 98446.1 8 g 88 /min 98 % 98 % 148/80 mm[Hg] [facility] 3 16:19:57 Social History Question Answer Notes LastModified by Organizat ion Details LastModified Time Tobacco Smoking Status Never Smoker Not Available [facility] 05/11/2020 03:36:23 What Was The Date Of Your Most Recent Tobacco Screening? 03/18/2025 [email or web address] Information not available 03/18/2025 Sex: Unknown Functional Status Question Answer Note LastModified by Organization D etails LastModified Time Do you or have you ever used any other forms of tobacco or nicotine? No [email or web address] Information not available 01/19/2023 Mental Status None recorded. Family History Nothing Reported. Medical History No medical history recorded. Immunizations Vaccine Type Date Status Note Provider Nam e and Address Organization Details Recorded Time COVID-19, mRNA, LNP-S, PF, 30 mcg/0.3 mL dose 1 completed Not Available [facility] 03/18/2023 22:20:51 Influenza, split virus, quadrivalent, preservative 8 completed Not Available [facility] 03/18/2023 22:20:51 COVID-19, mRNA, LNP-S, PF, 30 mcg/0.3 mL dose 1 completed Not Available [facility] 03/18/2023 22:20:51 Influenza, split virus, quadrivalent, preservative 1 completed Not Available [facility] 03/18/2023 22:20:51 Influenza, split virus, quadrivalent, preservative 2 completed Not Available [facility] 03/18/2023 22:20:51 Tdap 9 completed Not Available [facility] 03/18/2023 22:20:51 Influenza, split virus, quadrivalent, preservative 9 completed Not Available [facility] 03/18/2023 22:20:51 Influenza, split virus, quadrivalent, preservative 0 completed Not Available [facility] 03/18/2023 22:20:51 Past Encounters Encounter ID Performer Location Encounter Start Date Encounter Closed Date Diagnosis/Indication Diagnosis SNOMED-CT Code Diagnosis ICD10 Code Diagnosis IMO Codes Diagnosis Note [id number] Aidan Cedillo DO [facility] Internal Medicine [address] [facility],[place] [address] 11/12/2017 15:59:05 11/13/2017 07:59:21 Type 1 diabetes mellitus 33301006 E10.3219 will need to follow with opptho soon not checking gluc will await a1c that was done today refill insulin pen needles Asthma 151350551 J45.90 9 clearly doing ok as long as he ois using his inhalers and also sub with nebulizer when necess [id number] Aidan Cedillo DO [facility] Internal Medicine [address] [facility], [place] [address] 02/11/2018 15:17:50 02/13/2018 14:06:43 Type 1 diabetes mellitus 08508451 E10.3219 last a1c was 7.4 not checking gluc will await a1c that was done today refill insulin pen needles Asthma 028853475 J45.90 9 clearly doing ok as long as he is using his inhalers and also sub with nebulizer when necessary relates that allergies have only been seasonal but seems ok using his otc allergy meds [id number] Aidan Cedillo DO [facility] Internal Medicine [address] [facility],[place] [address] 05/21/2018 13:56:40 05/21/2018 16:52:37 Asthma 225119915 J45.909 clearly doing ok as long as he is using his inhalers and also sub with nebulizer when necessary relates that allergies have only been seasonal but seems ok using his otc allergy meds Type 1 lucie betes mellitus 62563708 E10.3219 last a1c was 7.4 not checking gluc will await a1c that was done today refill insulin pen needles [id number] Aidan Cedillo DO [facility] Internal Medicine [address] [facility], [place] [address] 08/23/2018 11:50:23 08/23/2018 12:36:12 Asthma 434398850 J45.909 clearly doing ok as long as he is using his inhalers and also sub with nebulizer when necessary relates that allergies have only been seasonal but seems ok using his otc allergy meds Type 1 lucie betes mellitus 00132936 E10.3219 last a1c was 7.9 not checking gluc seems ot be doing ok states he is doing better with eating now refill insulin pen needles Neuropathy due to diabetes mellitus 498369658 E13.40 currently about the stable no need for interventi on other than glucose control [id number] Aidan Cedillo DO [facility] Internal Medicine [address] [facility],[place] [address] 01/01/2019 11:23:22 01/01/2019 13:58:38 Microalbuminuria due to type 1 diabetes mellitus 1716856109 9106 E10.29 seems to be steady on his glucose now that he is more active and has lost weight Asthma 605493884 J45.90 9 clearly doing ok as long as he is using his inhalers and also sub with nebulizer when necessary relates that allergies have only been seasonal but seems ok using his otc allergy meds Type 1 lucie betes mellitus 54866801 E10.3219 last a1c was 7.5 (was 7.9) not checking gluc seems ot be doing ok states he is doing better with eating now cont to engage in physical activity [id number] Aidan Cedillo DO [facility] Internal Medicine [address] [facility],[place] [address] [place], [place] 7 03/14/2019 09:21:29 03/14/2019 10:06:51 Asthma 298376308 J45.909 clearly doing ok as long as he is using his inhalers and also sub with nebulizer when necessary relates that allergies have only been seasonal but seems ok using his otc allergy meds Pneumonia 367677513 J18. 9 resolving and is finishing the augmentin Type 1 lucie betes mellitus 03534272 E10.3219 he has stabilized and glucose readings not dropping down and is currently back on usual insulin sliding scale and 30 u of lantus Hypertensive disorder 38 344339 I10 given leg edema will go back to [facility] with hctz [id number] Aidan Cedillo DO [facility] Internal Medicine [address] [facility],[place], [place] 7 04/02/2019 13:41:12 04/02/2019 14:23:30 Type 1 diabetes mellitus 79346606 E10.3219 he hasworsene d and his a1c is 8.1 was 7.5 and glucose readings not dropping down and is currently back on usual insulin sliding scale and increase to 34 u of lantus Hypertensive disorder 38 203670 I10 leg edema now is better while back to [facility] with hctz Asthma 388861357 J45.90 9 clearly doing ok as long as he is using his inhalers and also sub with nebulizer when necessary relates that allergies have only been seasonal but seems ok using his otc allergy meds he has really stabilizie d with the asthma comapred to years ago [id number] Aidan Cedillo [facility] Internal Medicine [address] [facility],[place] [address], [place] 7 07/15/2019 14:45:43 07/15/2019 15:23:23 Type 1 diabetes mellitus 50577093 E10.3219 he hasworsene d and his a1c is 8.1 was 7.5 and glucose readings not dropping down and is currently back on usual insulin sliding scale and increase to 34 u of lantus Awaiting A1C at time of visit Asthma 989354976 J45.90 9 clearly doing ok as long as he is using his inhalers and also sub with nebulizer when necessary relates that allergies have only been seasonal but seems ok using his otc allergy meds he has really stabilizie d with the asthma comapred to years ago Breathing has been much improved and stable currently Hypertensive disorder 38 870783 I10 Well controlled and excellent today Microalbum inuria due to type 1 diabetes mellitus 8061039118 9106 E10.29 seems to be steady on his glucose now that he is more active and has [place] [id number] Aidan Cedillo DO [facility] Internal Medicine [address] [facility] [address],[place] [address] 04/21/2020 11:31:44 04/21/2020 13:34:35 Asthma 628247635 J45.909 stable Acute low back pain 2788 67232 M54.5 will treat this acute flare up this time next time if worse and more prolonged suggested imaging of his back Hypertensive disorder 38 132964 I10 stable will continue to monitor [id number] Aidan Cedillo DO [facility] Internal Medicine [address],[place] [address] 05/26/2020 13:39:36 05/26/2020 16:50:50 Hypertensive disorder 04363884 I10 Well controlled and excellent today Asthma 483164064 J45.90 9 clearly doing ok as long as he is using his inhalers and also sub with nebulizer when necessary relates that allergies have only been seasonal but seems ok using his otc allergy meds he has really stabilizie d with the asthma comapred to years ago Breathing has been much improved and stable currently Type 1 lucie betes mellitus 91221230 E10.3219 he has worsened and his a1c is 8.1 was 7.5 and glucose readings not dropping down and is currently back on usual insulin sliding scale and increase to 34 u of lantus Awaiting A1C at time of visit Chronic ki dney disease stage 3 414227611 N18.30 stable and no need to change meds per dr lopez Microalbum inuria due to type 1 diabetes mellitus 0581736277 9106 E10.29 seems to bemuch better on his glucose now that he is more active and has lost weight had seen renal in follow up creat 2.4 down to 2.3 renal says hold the course Neuropathy due to diabetes mellitus 311304249 E13.40 currently about the stable no need for interventi on other than glucose control [id number] Aidan Cedillo [facility] Internal Medicine [address] [facility],[place] [facility] [place] [address] 08/06/2020 09:46:38 08/06/2020 15:06:13 Acute exacerbation of asthma 832467954 J45.901 the patient has had problems with his sugar levels with pred tapers in the past has done better with medrol paks, will trial this instead will also give him an albuterol inhaler to use PRN for rescue relief and a z-romain abx of acute exacerbati on will call if symptoms worsen or develops a fever Asthma 368747313 J45.90 9 patient is having acute asthma exacerbati on not related to COVID-19 Type 1 lucie betes mellitus 40896624 E10.8 the patient will monitor his glucose more closely on steriod and adjust insulin appropriat breanne [id number] Aidan Cedillo [facility] Internal Medicine [address] [facility],[place] [address] 10/13/2020 11:13:05 10/13/2020 12:05:34 Hypertensive disorder 13995458 I10 Well controlled and excellent today Type 1 lucie betes mellitus 02428488 E10.3219 he has worsened and his a1c is down to 7.2 from 8.1 was 7.5 and glucose readings not dropping down and is currently back on usual insulin sliding scale and increase to 34 u of lantus Asthma 244226756 J45.90 9 clearly doing ok as long as he is using his inhalers and also sub with nebulizer when necessary relates that allergies have only been seasonal but seems ok using his otc allergy meds he has really stabilizie d with the asthma comapred to years ago using claritin for the allergies Breathing has been much improved and stable currently Chronic ki dney disease stage 3 082090870 N18.30 stable and no need to change meds per dr lopez Neuropathy due to diabetes mellitus 758938803 E13.40 currently about the stable no need for interventi on other than glucose control [id number] Aidan Cedillo [facility] Internal Medicine [address] [facility],[place] [address] 02/23/2021 11:38:11 02/23/2021 14:32:15 Chronic kidney disease stage 3 372628551 N18.30 stable and no need to change meds per dr lopez Hypertensive disorder 38 255980 I10 Well controlled and excellent today Type 1 lucie betes mellitus 57396188 E10.3219 he has worsened and his a1c is down to 7.3 and was 7.2 from 8.1 was 7.5 and glucose readings not dropping down and is currently back on usual insulin sliding scale and increase to 30 or 35 u of lantusdepe nding on araseli y sugars Asthma 992007640 J45.90 9 clearly doing ok as long as he is using his inhalers and also sub with nebulizer when necessary relates that allergies have only been seasonal but seems ok using his otc allergy meds he has really stabilizie d with the asthma comapred to years ago using claritin for the allergies Breathing has been much improved and stable currently [id number] Aidan Cedillo DO [facility] Internal Medicine [address] [facility],[place] [address] 08/02/2021 08:14:14 08/02/2021 13:57:34 Type 1 diabetes mellitus 96679810 E10.3219 currently his lab is pending he has not put on any wgt relates sugars are ok overall last chk , his a1c is down to 7.3 and was 7.2 from 8.1 was 7.5 and glucose readings not dropping down and is currently back on usual insulin sliding scale and increase to 30 or 35 u of lantusdepe nding on araseli y sugars Chronic ki dney disease stage 3 170100817 N18.30 stable and no need to change meds per dr lopez Asthma 845438718 J45.90 9 he continues to do ok as long as he is using his inhalers and also sub with nebulizer when necessary relates that allergies have only been seasonal but seems ok using his otc allergy meds he has really stabilizie d with the asthma comapred to years ago Breathing has been much improved and stable currently Hypertensive disorder 38 872986 I10 we have not been able to chk his bp as of late and he is encouraged to do so Neuropathy due to diabetes mellitus 852713840 E13.40 currently about the stable no need for interventi on other than glucose control Microalbum inuria due to type 1 diabetes mellitus 8308812049 9106 E10.29 seems to bemuch better on his glucose now that he is more active and has lost weight had seen renal in follow up creat 2.4 down to 2.3 renal says hold the course 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 8 resolved Acute inju ry of kidney 1881720066 6171593 N17.8 will recheck BMP while starting on lasix for the fluid build up Essential hypertension 61950745 I10 need to monitor his HR and BP since d/c from hospital due to medication changes [id number] Aidan Cedillo [facility] Internal Medicine [address] [facility],[place] [address] 10/25/2021 09:22:40 10/25/2021 11:14:43 Edema of lower extremity 976960935 R60.0 will fu with US echo, US duplex, increase lasix to 40 mg (BID of pills)stop amlodipine and switch to atenolol as it may be contributi ng to fluid build up Essential hypertension 86081927 I10 need to monitor his HR and BP since d/c from hospital due to medication changes [id number] Aidan Cedillo DO [facility] Internal Medicine [address] [facility],[place] [address] 11/09/2021 10:24:19 11/09/2021 15:09:22 Essential hypertension 43700816 I10 long detailed discussion re tx of bp in light of kidney ds Type 1 lucie betes mellitus 36406330 E10.3219 currently his lab is pending he has not put on any wgt relates sugars are ok overall last chk , his a1c is down to 7.3 and was 7.2 from 8.1 was 7.5 and glucose readings not dropping down and is currently back on usual insulin sliding scale and increase to 30 or 35 u of lantusdepe nding on araseli y sugars Chronic ki dney disease stage 3 595949565 N18.30 will need to follow closely now that he is on 80mg lasixdiscu ssed in detail Pneumonia 517188947 J18. 9 resolving and is clearly over the lung portion of his sepsiswe will have him keep chk O2 sats [id number] Aidan Cedillo DO [facility] [address] [facility],[place] [address] 04/04/2022 15:51:58 04/04/2022 17:28:01 Asthma 761475830 J45.909 he continues to do ok as long as he is using his inhalers and also sub with nebulizer when necessary relates that allergies have only been seasonal but seems ok using his otc allergy meds he has really stabilizie d with the asthma comapred to years ago Breathing has been much improved and stable currently Retinopath y due to diabetes mellitus 4679427 E11.319 his vision is subjective ly ok if sugars are high he notices a lot worse subjective ly Neuropathy due to diabetes mellitus 800064479 E13.40 currently about the stable no need for interventi on other than glucose control Edema of l ower extremity 955692206 R60.0 better now and is ok with furosemide being taken prn Type 1 lucie betes mellitus 65839196 E10.3219 currently his lab is pending he has not put on any wgt relates sugars are ok overall his a1c is not done yet and is pending prior to this , his a1c is down to 7.3 and was 7.2 from 8.1 was 7.5 and glucose readings not dropping down and is currently back on usual insulin sliding scale and increase to 20u of lantusdail y sugars are fluctuatin g [id number] DO [facility] [address] [facility] [place] [address] 10/20/2022 14:23:58 10/24/2022 08:42:39 Acute injury of kidney 8877740021 7563891 N17.8 sees nephrology on dialysisst able Essential hypertension 30980298 I10 recheck 132/80 R arm sitting Chronic ki dney disease stage 3 696600262 N18.32 monitored Type 1 lucie betes mellitus 63280989 E10.8 the patient will monitor his glucose more closely on steriod and adjust insulin appropriat breanne [id number] Aidan Cedillo [facility] Internal Medicine [address] [facility],[place] [address] 11/29/2022 15:24:17 11/29/2022 16:22:30 Skin ulcer due to diabetes mellitus 628508168 E11.622 L97.109 stableno new ulceration End stage renal failure on dialysis 130064643 Z99.2 has f/u to check fistulaif it is okay; will remove his catheter and start with the fistula [id number] Aidan Cedillo [facility] Internal Medicine [address] [facility],[email or web address] [address] 01/19/2023 14:43:20 01/19/2023 15:33:41 End stage renal failure on dialysis 512219387 Z99.2 going 3 x per week and is tolerating really well Essential hypertension 12410607 I10 long detailed discussion re tx of bp in light of kidney ds Type 1 lucie betes mellitus 30591086 E10.8 currently his lab is pending he has not put on any wgt relates sugars are ok overall his a1c is not done yet and is 7.6 checking sugars up to 10 times per daydaily sugars are fluctuatin g [id number] Aidan Cedillo [facility] Internal Medicine [address] [facility] [address],[place] [address] 06/22/2023 16:15:24 06/25/2023 08:48:10 Hypertensive disorder 63410984 I10 offf all meds no longer needs bp med since on dialysis Asthma 946689972 J45.90 9 he continues to do ok as long as he is using his inhalers and also sub with nebulizer when necessary was not getting the spirva for reasons unknown at pharmacy relates that allergies have only been seasonal but seems ok using his otc allergy meds he has really stabilizie d with the asthma comapred to years ago Breathing has been much improved and stable currently Type 1 lucie betes mellitus 58319438 E10.8 currently his lab is pending he has not put on any wgt relates sugars are ok overall his a1c is not done yet and is 7.6 checking sugars up to 10 times per daydaily sugars are fluctuatin g End stage renal failure on dialysis 049225919 Z99.2 going 3 x per week and is tolerating really well [id number] Aidan Cedillo DO [facility] Internal Medicine [address] [facility] [address],[employer] [place] [address] 09/23/2024 15:46:30 09/23/2024 16:30:14 Active or passive immunization 001273048 Z23 utd Adult heal th examination 042573304 Z00.01 he is doing amazingly well being 2 months out of his renal transplant he is followed closely by renal and endocrine at [facility] need mary kate rai has small lesion of left forearm Asthma 853664239 J45.90 9 he continues to do ok as long as he is using his inhalers and also sub with nebulizer when necessary was not getting the spirva for reasons unknown at pharmacy relates that allergies have only been seasonal but seems ok using his otc allergy meds he has really stabilizie d with the asthma comapred to years ago Breathing has been much improved and stable currently Microalbum inuria due to type 1 diabetes mellitus 9080959408 9106 E10.29 seems to bemuch better on his glucose now that he is more active and has lost weight Essential hypertension 17122433 I10 long detailed discussion re tx of bp in light of kidney ds Atypical p igmented lesion 5381155946 9103 L81.9 Transplant ed kidney present 457260897 Z94.0 followed closely by renal [id number] Aidan Cedillo DO [facility] [address] [facility] [address],[employer] [place] [address] 12/19/2024 09:27:48 12/19/2024 10:31:05 Asthma 610818165 J45.909 he continues to do ok as long as he is using his inhalers and also sub with nebulizer when necessary was not getting the spirva for reasons unknown at pharmacy relates that allergies have only been seasonal but seems ok using his otc allergy meds he has really stabilizie d with the asthma comapred to years ago Breathing has been much improved and stable currently Essential hypertension 84666804 I10 long detailed discussion re tx of bp in light of kidney ds Type 1 lucie betes mellitus 73429873 E10.8 currently his lab is pending he has not put on any wgt relates sugars are ok overall his a1c is not done yet and is 7.6 checking sugars up to 10 times per daydaily sugars are fluctuatin g Drug-induc ed oral ulceration 954394627 K12.1 T50.905A 3742313720 cont magic mouthwash cont valacyc and azithcall if he needs pain meds will be going back to renal clinic on [id number] Aidan Cedillo DO [facility] Internal Medicine [address],[place] [address] 12/30/2024 15:50:58 12/30/2024 16:38:38 Depression screening 752053910 Z13.31 neg Asthma 204448721 J45.90 9 he continues to do ok as long as he is using his inhalers and also sub with nebulizer when necessary was not getting the spirva for reasons unknown at pharmacy relates that allergies have only been seasonal but seems ok using his otc allergy meds he has really stabilizie d with the asthma comapred to years ago Breathing has been much improved and stable currently Essential hypertension 59535837 I10 long detailed discussion re tx of bp in light of kidney ds Type 1 lucie betes mellitus 22669018 E10.8 currently his lab is pending he has not put on any wgt relates sugars are ok overall his a1c is not done yet and is 7.6 checking sugars up to 10 times per daydaily sugars are fluctuatin g Acute bronchitis 8809780 2 J20.9 Drug-induc ed oral ulceration 825168685 K12.1 T50.905A 8984305996 here for rechk and is now much better ulcers are resolving priorcont magic mouthwash cont valacyc and azithcall if he needs pain meds will be going back to renal clinic on [id number] DO [facility] [address] [facility] [address],[place] [address] 03/18/2025 11:44:16 03/18/2025 12:13:59 Closed fracture of hand 430194679 S62.90XA 71058629 will change to alt pain medication , hydrocodon e is ineffectiv e and causes patient a lot of gastric issues Health Concerns Section Related Observation LastModified by Organization Detai ls LastModified Time None Recorded Concern Status LastModified by Organization Details LastModified Time None Recorded Advance Directives Directive None Recorded Payers Insurance Date Sequence Insurance Name Policy Number Policy Romano Covered Member ID Romano Member ID Guarantor Name 03/20/2025 [employer] Myke Davila 10/24/2022 1 [place] PRIOR TO 2022 - [facility] (MEDICAID) Myke Davila [id number] Myke Davila 06/04/2023 2 [place] [facility] Myke Davila [id number] Myke Davila 09/22/2024 1 [facility] [id number] Myke Davila [id number] Myke Davila 05/23/2025 1 [place] [id number] Myke Davila [id number] Myke Davila Notes Date Note Type Note Provider Name and Address Organization Details Recorded Time 3 text/htm l Care Management - DiabetesReported by PatientHPIFor self care, patient reportsseeing eye doctor yearly for dilated eye exam,checking feet regularly,normal range of home blood sugars (in the low 100s), andno side effects from medications. For associated symptoms, patient reportssymptoms are usually well controlled,no fatigue,no dizziness,no excessive sweating,no headaches,no confusion,no increased thirst,no increased appetite,no increased urination,no blurred vision,no numbness of feet, andno calluses on feet. Care Management - AsthmaReported by PatientHPIFor severity, patient reportsimproving,does not interfere with daily activities,does not disturb sleep, anddoes not cause nighttime awakening. For associated symptoms, patient reportsno fever,no fatigue,no irritability,no cough,normal appetite, andno change in productivity.ROS as noted in the HPI doing ok overall no major issuesrecently couldnt get spiriva not sure whyglucose readings usu in the 1-170 range Aidan Cedillo DO [address] [place], [address], [facility] 06/22/2023 16:33:04 5 text/htm l Annual WellnessReported by PatientSocial/Behavioral HistoryFor diet and nutrition, patient reportshealthy diet. For fracture risk, patient reportsno history of fractures,no recent explained fracture,no sudden unexplained fractures, andno previous musculoskeletal injuries. For physical activity, patient reportsexercises on a regular basis,recent increase in physical activity, andgood physical condition. For additional lifestyle factors, patient reportsno tobacco use,no alcohol intake, andstopped drinking alcohol.Mental Status:For depression risk, patient reportsnever feels sad, empty, or tearful,no loss of interest in activities,no significant changes in weight,no sleep disturbances or insomnia,no agitation,no loss of energy,no feelings of worthlessness or guilt,no thoughts of suicide,no history of depression, andno history of mood disorders.Functional AbilityFor hearing, patient reportsno loss of hearing. For vision, patient reportsno vision problems.ROS as noted in the HPI had DD kidney transplant on 0-2-67hosqas is doing okis back to work full timehis kidney is working better took several months to work betterno rejectiongoing for bx for rejection and watching creat was at 7 now down to 6.6 a1c last was 7.3 Aidan Cedillo DO [address] [place], [address], [facility] 09/23/2024 16:16:54 5 text/htm l Care Management - HypertensionReported by PatientHPIFor self care, patient reportsnot under emotional stress. For severity, patient reportssymptoms are improvinganddoes not interfere with daily activities. For associated

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
== END 2025-05-26 15:26 | disposition home or self-care (01) ==
LOC: HO.MANLDS 15:25
PROVIDERS: Visit Provider Internal Medicine
DX: E10.8 Type 1 diabetes mellitus with unspecified complications (principal)
CPT/HCPCS: 36415; 80053